=== PATIENT | female | born 1990 | race Caucasian/White ===

== ENCOUNTER 2017-09-07 12:03 | Outpatient (CLI) | payer BC, OTHER ==
[~2017-09-07] VITALS: Ht 167.6 cm; Wt 92.5 kg
[~2017-09-07 12:03] MED LIST: ALBUAER19 INH; BCPILLS PO; BND25 PO; BSP/10 PO; LAMO200T35 PO; LURA80TA PO; MOME100A INH
[2017-09-07] MEDS ORDERED: ABL10 PO (13:57)
[2017-09-07] MEDS ORDERED: PRENTAB26 PO (13:57)
[2017-09-07] MEDS ORDERED: LAMO100T16 PO (13:59)
[2017-09-07 14:01] VITALS: Ht 167.6 cm; Wt 92.5 kg
--- NOTE | 2017-09-12 11:37 | EDITING REQUIRED CODING QUERY ---
DIAGNOSIS NEEDED To promote full compliance with coding requirements relating to patient care, physician participation is requested in all cases of corrugator uncertainty. Please assist us with the question(s) below: Coding Question: The patient received care in labor and delivery on 09/07/17 as noted within the record. Please document the diagnosis that is being addressed by the medication/treatment. Provider Response: DIAGNOSIS: rule out labor WEEKS OF GESTATION: 38 Thank you for your assistance, Chary Rivas - Mixing Operator
== END 2017-09-07 14:10 | disposition home or self-care (01) ==
LOC: C.OPB 12:03 → C.LD 12:04 → C.OPB 14:10
PROVIDERS: ATTEND Obstetrics & Gynecology
DX: Z34.03 Encounter for supervision of normal first pregnancy, third trimester (principal); Z3A.38 38 weeks gestation of pregnancy

== ENCOUNTER 2017-10-03 19:49 | Inpatient (IN) | payer BC ==
[~2017-10-03] VITALS: Ht 167.6 cm; Wt 101.0 kg
[~2017-10-03 19:49] MED LIST changes: +ABL10 PO; -BCPILLS PO; +LAMO100T16 PO; -LAMO200T35 PO; -LURA80TA PO; -MOME100A INH
[2017-10-03 21:23] VITALS: Ht 167.6 cm; Wt 101.0 kg
[2017-10-03] MEDS ORDERED: [UNRECOGNIZED DRUG - CODE] (22:57)
[2017-10-04] MEDS ORDERED: LACTATED RINGER'S 1000ML 1,000 ML IV SCH (00:02)
[2017-10-04] MEDS ORDERED: LACTATED RINGER'S 1000ML 1,000 ML IV PRN (00:02)
[2017-10-04] MEDS ORDERED: INFLUENZA VIRUS QUAD VACCINE 0.5 ML SYR IM. ONE (00:15)
[2017-10-04] MEDS ORDERED: INFLUENZA ADMINISTRATION CHARGE ONE (00:15)
[2017-10-04] MEDS ORDERED: CALCIUM CARBONATE 500 MG CHEWABLE ONE (00:22)
--- NOTE | 2017-10-04 00:22 | Progress Note ---
Progress Note Date of Service Oct 04, 2017. Progress Note Admit Note 27 F P0000 at 40 weeks admitted in early labor at 40 weeeks. cervix 4/90/-1/ vertex. Contractions every 2-3 minutes. FHT Cat 1. GBS is negative. Will admit in labor.
[2017-10-04 00:42] LABS: HEMATOCRIT 35.2 % (37-47); HEMOGLOBIN 12.2 g/dL (12.0-16.0); MEAN CELL VOLUME 91.4 fL (80-100); MEAN CORPUSCULAR HEMOGLOBIN 31.7 pg (25-34); MEAN CORPUSCULAR HGB CONC 34.7 g/dl (32-36); PLATELET COUNT 206 K/uL (130-400); RED CELL DISTRIBUTION WIDTH SD 45.9 fL (36.4-46.3); WHITE BLOOD COUNT 11.59 K/uL (4.8-10.8)
[2017-10-04] MEDS ORDERED: ONDANSETRON INJ 2 MG/ML 2 ML VIAL ONE (04:31)
[2017-10-04] MEDS ORDERED: ONDANSETRON INJ 2 MG/ML 2 ML VIAL IV PRN (04:45)
[2017-10-04] MEDS: CALCIUM CARBONATE 500 MG CHEWABLE PO PRN ×2 (06:13→18:47)
[2017-10-04] MEDS ORDERED: OXYTOCIN 30 UNITS/500ML NSS IV ONE (15:52)
[2017-10-04] MEDS ORDERED: METHYLERGONOVINE MALEATE 0.2 MG/ML AMP ONE (16:31)
[2017-10-04] MEDS ORDERED: HYDROCORTISONE ACETATE 25 MG SUPP PR PRN (17:15)
[2017-10-04] MEDS ORDERED: OXYTOCIN 30 UNITS/500ML NSS IV PRN (17:15)
[2017-10-04] MEDS ORDERED: LANOLIN OINT EXT PRN (17:15)
[2017-10-04] MEDS ORDERED: OXYCODONE/ACETAMINOPHEN 5-325 TAB PO PRN (17:15)
[2017-10-04] MEDS ORDERED: SUPERCREAM 0.870 % 15GM JAR EXT PRN (17:15)
[2017-10-04] MEDS ORDERED: ACETAMINOPHEN 325 MG TAB PO PRN (17:15)
[2017-10-04] MEDS ORDERED: ALBUTEROL HFA 8 GM INHALER INH PRN (17:15)
[2017-10-04] MEDS ORDERED: BENZOCAINE 20% AER SPR 82.5 GM CAN EXT PRN (17:15)
[2017-10-04] MEDS ORDERED: DIPHTHERIA/TETANUS/PERTUSSIS 0.5 ML SYR/VIAL IM. ONE (17:15)
[2017-10-04] MEDS ORDERED: METHYLERGONOVINE MALEATE 0.2 MG/ML AMP IM ONE (17:15)
[2017-10-04] MEDS: IBUPROFEN 600 MG TAB PO PRN (18:47)
[2017-10-04 20:00] VITALS: BP 128/87; PULSE 87; TEMP 36.8
--- NOTE | 2017-10-04 20:59 | DELIVERY SUMMARY ---
DATE OF OPERATION: 10/04/2017 TIME OF DELIVERY: 1623. DELIVERY OF PLACENTA: 1627. DELIVERY NOTE: The patient is a 27-year-old 1, para 0 at 41 weeks and 1 day gestation who was admitted to labor and delivery on the evening of 10/03/2017 in active labor. She was francesca spontaneously on her own. She requested to not have an epidural for anesthesia. Artificial rupture of membranes was performed at 7:43 a.m. on 10/04/2017 with particular meconium-stained amniotic fluid noted. She reached complete dilatation at 1449 and she pushed to deliver at 1623. She delivered a viable male infant in the right occiput anterior position to an intact perineum. The baby was delivered and then placed on the patient's abdomen. Cord was clamped x2 and cut. Apgars were 8 at one minute and 9 at five minutes. Please see nursing notes for further baby assessment. Cord blood was then obtained and placenta was then delivered manually at 1627. The cord ruptured therefore the placenta had to be removed manually. Once the placenta was removed, Oxytocin infusion was then began. The uterus was noted to be atonic. Therefore she was given Methergine 0.2 mg IM along with fundal massage. Excellent hemostasis was achieved. Thorough examination of the perineum noted a second degree perineal laceration which was injected with lidocaine for anesthesia and was repaired with 2-0 and 3-0 Vicryl sutures in layers. Excellent hemostasis was noted. Digital rectal exam was completed and noted good sphincter tone with no suture noted within the rectal mucosa. Once the perineal laceration was completely repaired and hemostatic, attention was directed towards the right periurethral laceration which was also injected with lidocaine and was repaired with 3-0 Vicryl suture in continuous running fashion. Excellent hemostasis was noted. Estimated blood loss was 400 mL. All sponge, instrument and needle counts were found to be correct x2. Both patient and baby tolerated the surgery well and was sent to recovery with stable vital signs. I attest to the content of the Intraoperative Record and any orders documented therein. Any exceptions are noted below. MTDD
[2017-10-04] MEDS: BusPIRone 15 MG TAB PO SCH (23:29)
[2017-10-04] MEDS: DOCUSATE SODIUM 100 MG CAP PO SCH (23:29)
[2017-10-04 23:45] VITALS: BP 123/72; PULSE 85; TEMP 36.4
[2017-10-05 03:45] VITALS: BP 119/80; PULSE 78; TEMP 36.4
[2017-10-05] MEDS: IBUPROFEN 600 MG TAB PO PRN ×5 (03:52→21:29)
[2017-10-05 06:48] LABS: HEMATOCRIT 26.9 % (37-47)
[2017-10-05 07:37] VITALS: BP 116/76; PULSE 79; TEMP 36.6
[2017-10-05] MEDS ORDERED: FERROUS SULFATE 325 MG TAB PO SCH (08:00)
[2017-10-05] MEDS: BusPIRone 15 MG TAB PO SCH ×3 (08:04→19:22)
[2017-10-05] MEDS: ARIPIprazole TAB 10 MG TAB PO SCH (08:05)
--- NOTE | 2017-10-05 09:05 | OB/GYN Progress Note ---
[employer]ER [employer] Progress Note Date of Service: Oct 05, 2017. Patient is seen and examined. She feels well, no complaints. Ambulating without dizziness Voiding without difficulty Tolerating regular diet with out N&V Bleeding is minimal No fever/ chills/ CP/ SOB/ N&V/ Leg pain Bottle feeding without problems Date Time Temp Pulse Resp B/P (MAP) Pulse Ox O2 Delivery O2 Flow Rate FiO2 10/05/17 07:52 Room Air 10/05/17 07:37 36.6 79 20 116/76 (89) 10/05/17 03:45 36.4 78 18 119/80 (93) Room Air 10/04/17 23:45 36.4 85 18 123/72 (89) Room Air 10/04/17 23:45 Room Air 10/04/17 20:00 Room Air 10/04/17 20:00 36.8 87 18 128/87 (101) Room Air Last 24 Hours Test 10/05/17 05:58 Hemoglobin 9.0 g/dL Hematocrit 26.9 % PE: General: Alert, orientedx3, NAD Abd: soft, NT, fundus firm, at the Umbilicus Perineum intact, Lochia rubra minimal Ext; NT, no edema AP: 27 yo s/p , ppd# 1 VSS Afebrile doing well Continue routine care All questions were answered
[2017-10-05] MEDS: PRENATAL VITAMIN TAB PO SCH (09:38)
[2017-10-05] MEDS: DOCUSATE SODIUM 100 MG CAP PO SCH ×2 (09:38→19:22)
[2017-10-05] MEDS: FERROUS SULFATE 325 MG TAB PO SCH ×2 (09:38→19:21)
[2017-10-05 11:20] VITALS: BP 139/83; PULSE 97; TEMP 36.6; O2SAT 97
[2017-10-05] MEDS: NICOTINE POLACRILEX 2 MG GUM MT PRN ×4 (12:29→21:36)
[2017-10-05 15:20] VITALS: BP 121/75; PULSE 86; TEMP 36.4; O2SAT 98
[2017-10-05] MEDS ORDERED: BISACODYL 5 MG TABEC PO SCH (20:00)
[2017-10-06 00:15] VITALS: BP 126/82; PULSE 86; TEMP 36.7
[2017-10-06] MEDS: NICOTINE POLACRILEX 2 MG GUM MT PRN ×5 (00:22→13:21)
[2017-10-06] MEDS: IBUPROFEN 600 MG TAB PO PRN ×2 (01:21→05:43)
[2017-10-06 06:39] LABS: HEMATOCRIT 21.8 % (37-47); HEMOGLOBIN 7.2 g/dL (12.0-16.0); MEAN CELL VOLUME 93.6 fL (80-100); MEAN CORPUSCULAR HEMOGLOBIN 30.9 pg (25-34); MEAN PLATELET VOLUME 9.3 fL (7.4-10.4); PLATELET COUNT 160 K/uL (130-400); RED CELL DISTRIBUTION WIDTH CV 14.6 % (11.5-14.5); RED CELL DISTRIBUTION WIDTH SD 49.6 fL (36.4-46.3); WHITE BLOOD COUNT 11.26 K/uL (4.8-10.8)
[2017-10-06] MEDS ORDERED: BISACODYL 10 MG SUPP PR PRN (07:00)
[2017-10-06 08:30] VITALS: BP 121/76; PULSE 76; TEMP 36.4
[2017-10-06] MEDS: ARIPIprazole TAB 10 MG TAB PO SCH (08:32)
[2017-10-06] MEDS: BusPIRone 15 MG TAB PO SCH (08:32)
[2017-10-06] MEDS: FERROUS SULFATE 325 MG TAB PO SCH (09:20)
[2017-10-06] MEDS: PRENATAL VITAMIN TAB PO SCH (09:20)
[2017-10-06] MEDS: DOCUSATE SODIUM 100 MG CAP PO SCH (09:20)
--- NOTE | 2017-10-06 11:34 | OB/GYN Progress Note ---
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 Patient is seen and examined. She feels well, no complaints. Ambulating without dizziness Voiding without difficulty Tolerating regular diet with out N&V Bleeding is minimal No fever/ chills/ CP/ SOB/ N&V/ Leg pain Bottle feeding without problems Date Time Temp Pulse Resp B/P (MAP) Pulse Ox O2 Delivery O2 Flow Rate FiO2 10/06/17 08:30 36.4 76 18 121/76 (91) Room Air 10/06/17 08:00 Room Air 10/06/17 00:15 36.7 86 18 126/82 (97) Room Air 10/06/17 00:15 Room Air 10/05/17 15:20 98 Room Air 10/05/17 15:20 36.4 86 18 121/75 (90) 98 Room Air Last 24 Hours Test 10/06/17 06:12 White Blood Count 11.26 K/uL Red Blood Count 2.33 M/uL Hemoglobin 7.2 g/dL Hematocrit 21.8 % Mean Corpuscular Volume 93.6 fL Mean Corpuscular Hemoglobin 30.9 pg Mean Corpuscular Hemoglobin Concent 33.0 g/dl RDW Standard Deviation 49.6 fL RDW Coefficient of Variation 14.6 % Platelet Count 160 K/uL Mean Platelet Volume 9.3 fL PE: General: Alert, orientedx3, NAD Abd: soft, NT, fundus firm, at the Umbilicus Perineum intact, Lochia rubra minimal Ext; NT, no edema AP: 27 yo s/p , ppd# 2 VSS Afebrile doing well Anemic, asymptomatic, on iron bid Discussed blood transfusion vs oral iron therapy and iron rich food She likes to have level repeated before d/c Continue routine care All questions were answered D/C home per H&H
[2017-10-06] MEDS ORDERED: FRRS300 PO (11:35)
--- NOTE | 2017-10-06 11:36 | Discharge Instructions ---
Discharge Instructions Date of Service Oct 06, 2017. Admission Reason for Admission: LABOR Discharge Discharge Diagnosis / Problem: Discharge Goals Goal(s): Routine recovery after delivery Activity Recommendations Activity Limitations: as noted below ACTIVITY RECOMMENDATIONS: * Gradual return to full activity over the next 2-3 weeks. * No lifting - nothing heavier than baby over the next 2-3 weeks. * Do not engage in vigorous exercise, sexual activity or sports until cleared by your physician. * Do not drive or operate any motorized equipment until cleared by your physician. * You may shower/bathe daily. BREAST CARE: If you are not breast feeding: * Wear a supportive bra 24 hours a day for one to two weeks. * Avoid stimulating your breasts and nipples as much as possible during the first few weeks after delivery. * When taking a shower, have the warm water hit your back, not breasts. * When your breasts feel full, apply ice packs. Usually three to four times a day helps ease the discomfort. * Take a mild pain medication (Tylenol/Motrin) when you are uncomfortable. If breast feeding: * Use breast milk to lubricate nipples. Lansinoh cream may be used for sore nipples. You do not need to remove cream prior to breast feeding. If using a different brand of cream, check the label for directions regarding removal of cream prior to nursing. * Wear a supportive bra. * If having problems with breasts or breast feeding, call a inbound sales consultant or your health care provider. EPISIOTOMY CARE: After delivery, if you have an episiotomy (stitches), the following steps will ease discomfort and aid healing. * For the first 24 hours after delivery, place ice packs next to your episiotomy to help reduce swelling. * After the first 24 hour-period, sitz baths, either portable or in the tub, are suggested. A shower with a shower arm sprayed over the episiotomy may be comforting. * Jacqueline care should be done after each voiding and bowel movement. Squirt warm water from a plastic bottle over the perineum (region of the body between the anus and urinary opening) and pat dry. * Use Dermoplast to ease discomfort. Shake container. [place] directly over the episiotomy. * Place a Tucks on a clean sanitary pad next to your episiotomy. OVER THE COUNTER MEDICATION: * For discomfort or pain, you may use Acetaminophen (Tylenol), Ibuprofen (Advil ), or Naproxen (Aleve) following the package directions. * For constipation you may use Colace following the package directions. SPECIAL CARE INSTRUCTIONS: When you are discharged from the hospital, it is important for you to follow the instructions listed below: * During the first week at home, you should be able to care for yourself and your baby. In addition, the usual light household activities are encouraged. * Limit your activities to the way you feel. Do not try to clean the house or move furniture. Be sensible. * If you actively engage in sports and have done so up until the time of your delivery, you may resume these activities as soon as you feel able. This may take up to one month or even longer. Use good judgment. * Continue to take your vitamins for at least six weeks after the of your baby. * Your diet need not be limited unless you were on a special diet before your delivery. Breast-feeding mothers need around 2500 calories per day and at least 64-80 ounces of fluid per day (8 to 10 glasses). * You should eat foods from the four major food groups. Crash diets or fad diets are to be avoided. Eating lean meats, fresh fruits and vegetables, low-fat dairy products, high fiber foods and a regular exercise program, will help you get back to your pre- weight without putting your health at risk. * Constipation is sometimes a problem after delivery. Take a mild laxative as needed. If breast feeding, Milk of Magnesia is acceptable to use. You may use a suppository or Fleets enema if no episiotomy. * A daily shower or tub bath is suggested. Be sure to thoroughly and gently dry the perineum. * A bloody vaginal discharge will usually continue until around four weeks post . A small amount of bleeding may continue for as long as six weeks. Vaginal discharge changes from the bright red bleeding after delivery to pink then brownish and finally yellowish-pink before becoming white and disappearing. * Bleeding may increase with activity. Your first period may come in 4-8 weeks. If you are breast feeding, your period may be delayed even longer. * [place] (sex) can begin whenever both you and your partner feel comfortable and do not have any form of genital infection. It is recommended that you wait until after your return appointment and discuss with your physician. If you have questions, please talk to your health care practitioner. A condom should be used to prevent infection and . * Foreplay, gentle intercourse and lubrication is very important the first several times to prevent pain. A water-based lubricant such as K-Y jelly or Astroglide may be used. * Tampons may be used six weeks after delivery. * Douching should be avoided for 6 weeks after delivery. * If you have RH negative blood and your baby is RH positive, you will receive RHOGAM by injection prior to discharge. The nurse will give you a card to keep with you that has the date and place that you received RHOGAM after delivery. * During your care, you had a Rubella screen done to check for the presence of rubella antibodies in your blood. If your test was negative, you will receive a Rubella vaccine prior to discharge. This vaccine may cause a fever, soreness at the injection site and flu-like symptoms. If these symptoms persist, notify your health care practitioner. is not advised for three months after a Rubella vaccine. There is a higher chance of having a baby with defects if conceived within three months of getting the vaccine. * If you were discharged 24 hours from delivery or before 48 hours: Visiting nurses will come to your home 48 hours after discharge to assess you and your baby. The visiting nurse will meet with you while you are in the hospital to arrange a time and get directions to your home. * Verbalizes understanding of car seat law as reviewed with patient nursing. * Car Seat hand-out given and reviewed with patient by nursing. * Shaken baby information reviewed with patient by nursing. Call you doctor if: * Heavy bleeding (saturating several pads an hour) or passing clots the size of your fist. * A fever >101 degrees F (38.3 degrees C) on two occasions four hours apart and/or chills. * Unusual pain in the pelvic or vaginal areas. * "Baby Blues" lasting longer than two weeks. If you have any questions or concerns, call your health care practitioner at . FOLLOW-UP VISIT: * Please call the office at to schedule a 6 week examination. It is important you keep this appointment. * It is important for you to make arrangements for either yearly or twice yearly check-ups thereafter. . Current Hospital Diet Patient's current hospital diet: Regular OB Diet Discharge Diet Recommended Diet: Regular Diet Pending Studies Studies pending at discharge: no Medical Emergencies . Who to Call and When: Medical Emergencies: If at any time you feel your situation is an emergency, please call 911 immediately. . Non-Emergent Contact Non-Emergency issues call your: Specialist Call Non-Emergent contact if: you have a fever, temperature is above 100.5, your pain is not controlled, your pain is worsening . . "Provider Documentation" section prepared by Viral Underwood. .
[2017-10-06 12:15] LABS: HEMATOCRIT 21.4 % (37-47); HEMOGLOBIN 7.2 g/dL (12.0-16.0)
--- NOTE | 2017-10-06 12:39 | OB/GYN Progress Note ---
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 Discussed the results Hb stable at 7.2 She likes to be discharged with oral iron Instructions were when to call Rx written
[2017-10-06 13:59] VITALS: BP_DIAS 76; PULSE 76; TEMP 36.4
[2017-10-08] MEDS ORDERED: PRENTAB26 PO (13:57)
== END 2017-10-06 13:55 | disposition home or self-care (01) | DRG 775 ==
LOC: C.OPB 19:49 → C.LD 19:49 → C.OPB 10-04 00:05 → C.OBG 10-04 20:04
PROVIDERS: ADMIT Obstetrics & Gynecology; ATTEND Obstetrics & Gynecology
PROC: 0KQM0ZZ Repair Perineum Muscle, Open Approach (ICD-10-PCS; principal; 2017-10-04)
PROC: 10E0XZZ Delivery of Products of Conception, External Approach (ICD-10-PCS; principal; 2017-10-04)
DX: O77.0 Labor and delivery complicated by meconium in amniotic fluid (principal); O99.344 Other mental disorders complicating childbirth; O75.89 Other specified complications of labor and delivery; O70.1 Second degree perineal laceration during delivery; Z3A.41 41 weeks gestation of pregnancy; Z37.0 Single live birth; F31.9 Bipolar disorder, unspecified; Z79.899 Other long term (current) drug therapy

== ENCOUNTER 2017-10-08 14:41 | Emergency (ER) | payer BC ==
[~2017-10-08] VITALS: Ht 167.6 cm; Wt 90.7 kg
[~2017-10-08 14:41] MED LIST changes: -BND25 PO; +FRRS300 PO; +PRENTAB26 PO; +[UNRECOGNIZED DRUG - CODE]
[2017-10-08 14:47] VITALS: TEMP 36.8; Ht 167.6 cm; Wt 90.7 kg
[2017-10-08] MEDS ORDERED: SODIUM CHLORIDE 0.9% 1000ML 1,000 ML IV ONE (16:01)
[2017-10-08] MEDS ORDERED: SODIUM CHLORIDE 0.9% 1000ML 1,000 ML IV STA (16:01)
--- NOTE | 2017-10-08 16:18 | DIAGNOSTIC IMAGING REPORT ---
CHEST ONE VIEW PORTABLE CLINICAL HISTORY: CHEST PAIN dyspnea COMPARISON STUDY: 05/30/2012 FINDINGS: The bones soft tissues and hemidiaphragms are normal. The cardiomediastinal silhouette is normal. The lungs are clear. The pulmonary vasculature is normal. IMPRESSION: Negative chest. The above report was generated using voice recognition software. It may contain grammatical, syntax or spelling errors. Electronically signed by: Calvin Jaimes M.D. 10/08/2017 4:16 PM Dictated Date/Time: 10/08/2017 4:16 PM
--- NOTE | 2017-10-08 16:24 | EMERGENCY ROOM VISIT NOTE ---
History Report prepared by Jovanni: Margo Yuan Under the Supervision of: Dr. Ariel Hastings M.D. First contact with patient: 15:50 Chief Complaint: DIZZY Stated Complaint: DIZZINESS AND ANEMIA, REFERRED BY MD Nursing Triage Summary: Patient ambulatory to triage with an upright and steady gait, states "My doctor referred me here for a blood transfusion. I had a baby on Saturday and have been anemic since then. I am morre symptomatic now. I have a headache and am lightheaded, dizzy, and pale. I have some shortness of breath with exertion." History of Present Illness The patient is a 27 year old female who presents to the Emergency Room with complaints of worsening dizziness starting 4 days ago. The patient had baby 4 days ago. The baby was vaginally delivered and was 10 lbs. She did not have an epidural. She has been anemic since then with a hemoglobin of 7.1. The patient was discharged home 2 days ago. She has been increasingly symptomatic with her anemia. She reports dizziness, chills, headache, and SOB with exertion. She has been taking iron supplements to no relief. She was seen by her Wig Sales Consultant today and referred to the ED for a transfusion. She reports that she is not bleeding excessively. She did pass some clots today, but she was not concerned. Her abdomen has felt sore. She denies any fever, chest pain, or urinary symptoms. She has been having swelling in her legs for 1 month now. She denies any history of preeclampsia. She is bottle feeding. She has a history of bipolar, asthma, GERD, and anxiety. She is not on lithium. Source of History: patient Onset: 4 days ago Quality: other (dizziness) Timing: worsening Modifying Factors (Worsening): other (anemia) Associated Symptoms: + chills, + headache, + SOB, No fevers, No chest pain, No urinary symptoms Review of Systems See HPI for pertinent positives & negatives. A total of 10 systems reviewed and were otherwise negative. Past Medical & Surgical Medical Problems: (1) ASTHMA, UNSPECIFIED (2) BIPOL I, MOST RECENT EPISODE (OR CURRENT) UNSPECIFIED (3) FAM HX-OTH KIDNEY DISEASES (4) FAMILY HISTORY OF OTHER CARDIOVASCULAR DISEASES (5) FAMILY HX-MALIGNANCY NOS (6) HISTORY OF TOBACCO USE (7) History of tonsillectomy (8) MIGRAINE UNSPECIFIED W/O INTRACT MGRN W/O STATUS MIGRAINOSUS (9) PYELONEPHRITIS NOS Old medical records were reviewed. Nurse's notes were reviewed and I agree with. Family History FH: lung disease Kidney disease Kidney stones Social History Smoking Status: Former Smoker Alcohol Use: none Drug Use: none Housing Status: lives with family Occupation Status: employed Current/Historical Medications Scheduled Aripiprazole (Aripiprazole), 20 MG PO DAILY Ferrous Sulfate (Ferrous Sulfate), 325 MG PO TID Lamotrigine (Lamotrigine), 100 MG PO BID Multivit/Min/Iron/Fol Ac/Pren ( Vitamin), 1 TAB PO DAILY Scheduled PRN Albuterol Sulfate (Proair Respiclick), 2 PUFFS INH QID PRN for SOB/Wheezing Buspirone HCl (Buspirone HCl), 7.5 MG PO TID PRN for Anxiety Allergies Coded Allergies: Latex (Verified Allergy, Intermediate, Swelling of extremities and face., 10/08/17) PT was instructed by PCP to treat latex as an allergy. Physical Exam Vital Signs Date Time Temp Pulse Resp B/P (MAP) Pulse Ox O2 Delivery O2 Flow Rate FiO2 10/08/17 20:00 66 16 134/94 100 10/08/17 18:55 77 16 138/83 99 Room Air 10/08/17 17:39 104 22 141/90 98 Room Air 10/08/17 17:34 75 22 145/94 99 Room Air 76 137/96 100 141/90 10/08/17 16:46 73 20 100 Room Air 10/08/17 16:35 68 10/08/17 14:47 36.8 79 20 135/91 100 Room Air Physical Exam General: Mildly pale appearing young female in no acute distress. HEENT: Normal cephalic atraumatic. Pupils are equal round and reactive to light. Extraocular movements are intact. Oropharynx is pink with moist mucous membranes. No swelling of the mouth lips or tongue. Neck: Supple with a midline trachea. No meningeal signs or stiffness, no JVD or bruits. No Stridor. Chest: Clear to auscultation bilaterally. No wheezes or rhonchi. No increased work of breathing. Heart: regular rate and rhythm. Abdomen: Gravid uterus felt around the umbilicus, firm, mildly tender. Extremities: Peripheral edema bilaterally which she says is chronic. Spine/Back. Non tender to palpation. No CVA tenderness Skin: Good turgor without rashes. Neurologic exam: Cranial nerves two through 12 are intact. Motor and sensation are intact and symmetrical throughout. Medical Decision & Procedures ER Provider Diagnostic Interpretation: X-ray results as stated below per interpretation by me and the radiologist: CHEST ONE VIEW PORTABLE CLINICAL HISTORY: CHEST PAIN dyspnea COMPARISON STUDY: 05/30/2012 FINDINGS: The bones soft tissues and hemidiaphragms are normal. The cardiomediastinal silhouette is normal. The lungs are clear. The pulmonary vasculature is normal. IMPRESSION: Negative chest. The above report was generated using voice recognition software. It may contain grammatical, syntax or spelling errors. Electronically signed by: Calvin Jaimes M.D. 10/08/2017 4:16 PM Dictated Date/Time: 10/08/2017 4:16 PM Laboratory Results 10/08/17 16:06 Red Blood Count 2.85, Mean Corpuscular Volume 94.7, Mean Corpuscular Hemoglobin 31.6, Mean Corpuscular Hemoglobin Concent 33.3, Mean Platelet Volume 8.6, Neutrophils (%) (Auto) 71.9, Lymphocytes (%) (Auto) 18.7, Monocytes (%) (Auto) 5.8, Eosinophils (%) (Auto) 2.1, Basophils (%) (Auto) 0.2, Neutrophils # (Auto) 6.72, Lymphocytes # (Auto) 1.75, Monocytes # (Auto) 0.54, Eosinophils # (Auto) 0.20, Basophils # (Auto) 0.02 10/08/17 16:06 Test 10/08/17 16:06 White Blood Count 9.35 K/uL (4.8-10.8) Red Blood Count 2.85 M/uL (4.2-5.4) Hemoglobin 9.0 g/dL (12.0-16.0) Hematocrit 27.0 % (37-47) Mean Corpuscular Volume 94.7 fL (80-100) Mean Corpuscular Hemoglobin 31.6 pg (25-34) Mean Corpuscular Hemoglobin Concent 33.3 g/dl (32-36) Platelet Count 288 K/uL (130-400) Mean Platelet Volume 8.6 fL (7.4-10.4) Neutrophils (%) (Auto) 71.9 % Lymphocytes (%) (Auto) 18.7 % Monocytes (%) (Auto) 5.8 % Eosinophils (%) (Auto) 2.1 % Basophils (%) (Auto) 0.2 % Neutrophils # (Auto) 6.72 K/uL (1.4-6.5) Lymphocytes # (Auto) 1.75 K/uL (1.2-3.4) Monocytes # (Auto) 0.54 K/uL (0.11-0.59) Eosinophils # (Auto) 0.20 K/uL (0-0.5) Basophils # (Auto) 0.02 K/uL (0-0.2) RDW Standard Deviation 49.9 fL (36.4-46.3) RDW Coefficient of Variation 14.6 % (11.5-14.5) Immature Granulocyte % (Auto) 1.3 % Immature Granulocyte # (Auto) 0.12 K/uL (0.00-0.02) Anion Gap 7.0 mmol/L (3-11) Est Creatinine Clear Calc Drug Dose 143.9 ml/min Estimated GFR () 139.3 Estimated GFR (Non- 120.2 BUN/Creatinine Ratio 10.4 (10-20) Calcium Level 8.5 mg/dl (8.5-10.1) Total Bilirubin 0.2 mg/dl (0.2-1) Direct Bilirubin < 0.1 mg/dl (0-0.2) Aspartate Amino Transf (AST/SGOT) 66 U/L (15-37) Alanine Aminotransferase (ALT/SGPT) 90 U/L (12-78) Alkaline Phosphatase 142 U/L (45-117) Total Protein 6.3 gm/dl (6.4-8.2) Albumin 2.3 gm/dl (3.4-5.0) Lipase 91 U/L (73-393) Laboratory studies as stated above per my review. Medications Administered Medications (Trade) Dose Ordered Sig/Balwinder Route Start Time Stop Time Status Last Admin Dose Admin Sodium Chloride 1,000 ml @ 999 mls/hr Q1H1M STAT IV 10/08/17 16:01 10/08/17 17:01 DC 10/08/17 16:01 999 MLS/HR ECG Per My Interpretation Indication: other (dizziness) Rate (beats per minute): 75 Rhythm: normal sinus Findings: no acute ischemic change, no ectopy Comparison ECG Date: 24-Aug-2015 Change: no significant change ED Course 155: Past medical records reviewed. The patient was evaluated in room C6, and a complete history and physical examination were performed. 1601: NSS 1000 ml @ 999 mls/hr IV. 1650: I reevaluated the patient. She appears comfortable and is up to going home. 172: I reevaluated the patient. She is resting comfortably. We are waiting for OB to call back. 1841: I discussed the patient's case with Laura Salter Wig Sales Consultant. She will come to evaluate the patient. 1951: Wig Sales Consultant has evaluated the patient and feels that she can go home. She was offered blood transfusion, but she declined. She notes that she is mostly dizzy with running around the house and thinks she might just be overexerting herself. The patient's uterus is still enlarged, but exam is unchanged from when she was discharged. 1953: Upon reevaluation, the patient is resting comfortably. I discussed the results and treatment plan with her. She verbalized agreement of the treatment plan. The patient was discharged home. Medical Decision Differentials include, but are not limited to; anemia, infection, dehydration, cardiac disease, electrolyte or metabolic abnormality. This patient comes in as described above. She was placed in room C6. she has symptoms of anemia likely she is she has had minimal vaginal bleeding. Her abdomen has some mild tenderness but the uterus appears firm. she is afebrile. She was seen by her director of assessing and sent to the ER for possible transfusion according to the patient. She does have swollen legs but says that she has been negative for preeclampsia otherwise. IV access established was type and cross for blood multiple blood testing was obtained as well as EKG and chest x-ray. She was hydrated with IV normal saline was reassessed frequently. She feels much better. Her blood pressures remained stable. I checked orthostatics and her pulse does go up but her blood pressure stays the same. Her hemoglobin is actually up at 9. She has no white count. She has a normal neurologic exam and she has nothing to suggest acute neurologic process. I do not think she is likely eclamptic/preeclamptic. She has had chronic swelling of her legs during this that is unchanged. She has nothing to suggest cardiac disease. I did have the director of assessing evaluate her in the ER. She feels she can go home as well. She feels her abdominal exam is unchanged as is her legs. She did offer to transfuse the patient but the patient declined. The patient has been overdoing it at home and needs to rest a little bit. She will be anemic for a few days until sure starts to recover from this. Again, she declines transfusion and wants to go home. I think this is reasonable she should rest and drink plenty of fluids and she is to follow-up to get her lab work rechecked on at her director of assessing office. She is return to the ER if: Worsening of symptoms, fever or chills, chest pain, shortness of breath, any new problems or concerns. She is happy with plan and discharged to home. Medication Reconcilliation Current Medication List: was personally reviewed by me Blood Pressure Screening Patient's blood pressure: Elevated blood pressure Blood pressure disposition: Elevated BP felt to be situational Consults Time Called: 1656 Consulting Physician: Laura Salter Wig Sales Consultant Returned Call: 1841 I discussed the patient's case with her. She will come to evaluate the patient. Impression Primary Impression: Dizziness Additional Impression: Anemia, Scribe Attestation The scribe's documentation has been prepared under my direction and personally reviewed by me in its entirety. I confirm that the note above accurately reflects all work, treatment, procedures, and medical decision making performed by me. Departure Information Dispostion Home / Self-Care Referrals No Doctor, Assigned (PCP) Forms HOME CARE DOCUMENTATION FORM, IMPORTANT VISIT INFORMATION Patient Instructions My [facility] [employer] Additional Instructions Rest Drink plenty of fluids Be careful when getting up and down. Follow-up with OXYGEN THERAPIST on for recheck on your blood work Return to the ER in the meantime if you have worsening symptoms, fever, chest pain, increasing bleeding, shortness of breath, any new problems or concerns. Problem Qualifiers
[2017-10-08] MEDS ORDERED: ARIP1TAB17 PO (16:27)
[2017-10-08] MEDS ORDERED: LAMO1TAB21 PO (16:27)
[2017-10-08] MEDS ORDERED: ALBU18002 INH (16:27)
[2017-10-08] MEDS ORDERED: BSP15 PO (16:27)
[2017-10-08] MEDS ORDERED: FERR325T5 PO (16:29)
[2017-10-08 16:37] LABS: ALBUMIN 2.3 gm/dl (3.4-5.0); ALT/SGPT 90 U/L (12-78); BLOOD UREA NITROGEN 7 mg/dl (7-18); CALCIUM 8.5 mg/dl (8.5-10.1); CARBON DIOXIDE 26 mmol/L (21-32); CREATININE 0.66 mg/dl (0.60-1.20); GLUCOSE 86 mg/dl (70-99); LIPASE 91 U/L (73-393); POTASSIUM 3.8 mmol/L (3.5-5.1); SODIUM 138 mmol/L (136-145)
[2017-10-08 16:40] LABS: ALKALINE PHOSPHATASE 142 U/L (45-117); AST/SGOT 66 U/L (15-37); TOTAL PROTEIN 6.3 gm/dl (6.4-8.2)
[2017-10-08 16:42] LABS: BASO % 0.2 %; BASO ABS # 0.02 K/uL (0-0.2); EOS % 2.1 %; IG# 0.12 K/uL (0.00-0.02); LYMPH % 18.7 %; LYMPH ABS # 1.75 K/uL (1.2-3.4); MEAN CELL VOLUME 94.7 fL (80-100); MEAN CORPUSCULAR HEMOGLOBIN 31.6 pg (25-34); MEAN CORPUSCULAR HGB CONC 33.3 g/dl (32-36); MEAN PLATELET VOLUME 8.6 fL (7.4-10.4); MONO % 5.8 %; MONO ABS # 0.54 K/uL (0.11-0.59); NEUT % 71.9 %; NEUT ABS # 6.72 K/uL (1.4-6.5); PLATELET COUNT 288 K/uL (130-400); RED CELL DISTRIBUTION WIDTH CV 14.6 % (11.5-14.5); RED CELL DISTRIBUTION WIDTH SD 49.9 fL (36.4-46.3); WHITE BLOOD COUNT 9.35 K/uL (4.8-10.8)
[2017-10-08 20:00] VITALS: BP 134/94; PULSE 66; O2SAT 100
--- NOTE | 2017-10-08 20:30 | Medical Consult ---
Consultation Date of Consultation: Oct 08, 2017. Attending Physician: Reason for Consultation: Sent from office for blood transfusion History of Present Illness Patient is a 27 yo s/p on 10/04/17, delivered 10 lb 1 oz baby boy She was discharged on 10/06 Her HB was 7.1 ( 2 times) and she was asymptomatic Discussion was made about blood transfusion with its benefits and risks vs oral iron therapy She was asymptomatic, VSS and wanted to be discharged home She was recommended to take iron bid with ornage juice and PNV with iron at another time of the day She went home and started be asymptomatic She states she has been very actvie at home, running up and down stairs and feels light headed dizzy after climbing stairs She feels better when she sits and rests She is bottle feeding Baby is well Her is helping her Her bleeding was heavier this morning, passed cloth one time and then slowed down Her legs have been swollen since her She was in office this afternoon and her repeat HB was was 8.2, Hct: 25.9 It was repeated here Last 24 Hours Test 10/08/17 16:06 White Blood Count 9.35 K/uL Red Blood Count 2.85 M/uL Hemoglobin 9.0 g/dL Hematocrit 27.0 % Mean Corpuscular Volume 94.7 fL Mean Corpuscular Hemoglobin 31.6 pg Mean Corpuscular Hemoglobin Concent 33.3 g/dl Platelet Count 288 K/uL Mean Platelet Volume 8.6 fL Neutrophils (%) (Auto) 71.9 % Lymphocytes (%) (Auto) 18.7 % Monocytes (%) (Auto) 5.8 % Eosinophils (%) (Auto) 2.1 % Basophils (%) (Auto) 0.2 % Neutrophils # (Auto) 6.72 K/uL Lymphocytes # (Auto) 1.75 K/uL Monocytes # (Auto) 0.54 K/uL Eosinophils # (Auto) 0.20 K/uL Basophils # (Auto) 0.02 K/uL RDW Standard Deviation 49.9 fL RDW Coefficient of Variation 14.6 % Immature Granulocyte % (Auto) 1.3 % Immature Granulocyte # (Auto) 0.12 K/uL Sodium Level 138 mmol/L Potassium Level 3.8 mmol/L Chloride Level 105 mmol/L Carbon Dioxide Level 26 mmol/L Anion Gap 7.0 mmol/L Blood Urea Nitrogen 7 mg/dl Creatinine 0.66 mg/dl Est Creatinine Clear Calc Drug Dose 143.9 ml/min Estimated GFR () 139.3 Estimated GFR (Non- 120.2 BUN/Creatinine Ratio 10.4 Random Glucose 86 mg/dl Calcium Level 8.5 mg/dl Total Bilirubin 0.2 mg/dl Direct Bilirubin < 0.1 mg/dl Aspartate Amino Transf (AST/SGOT) 66 U/L Alanine Aminotransferase (ALT/SGPT) 90 U/L Alkaline Phosphatase 142 U/L Total Protein 6.3 gm/dl Albumin 2.3 gm/dl Lipase 91 U/L Date Time Temp Pulse Resp B/P (MAP) Pulse Ox O2 Delivery O2 Flow Rate FiO2 10/08/17 18:55 77 16 138/83 99 Room Air 10/08/17 17:39 104 22 141/90 98 Room Air 10/08/17 17:34 75 22 145/94 99 Room Air 76 137/96 100 141/90 10/08/17 16:46 73 20 100 Room Air 10/08/17 16:35 68 10/08/17 14:47 36.8 79 20 135/91 100 Room Air She states she is feeling better now, no more dizziness No CP/ SOB/fever/ chills/ ALONSO/ N&V/ epigastric or RUQ pain She is on monitor and pulse is 72. Past Medical/Surgical History Medical Problems: (1) Anemia, Status: Acute (2) Dizziness Status: Acute (3) Toe sprain Status: Acute Family History FH: lung disease Kidney disease Kidney stones Social History Smoking Status: Former Smoker Drug Use: none Housing Status: lives with family Occupation Status: employed Allergies Coded Allergies: Latex (Verified Allergy, Intermediate, Swelling of extremities and face., 10/08/17) PT was instructed by PCP to treat latex as an allergy. Current Inpatient Medications Current Inpatient Medications Medications (Trade) Dose Ordered Sig/Balwinder Route Start Time Stop Time Status Last Admin Dose Admin Sodium Chloride 1,000 ml @ 200 mls/hr Q5H ONCE IV 10/08/17 16:01 10/08/17 21:00 Physical Exam Date Time Temp Pulse Resp B/P (MAP) Pulse Ox O2 Delivery O2 Flow Rate FiO2 10/08/17 18:55 77 16 138/83 99 Room Air 10/08/17 17:39 104 22 141/90 98 Room Air 10/08/17 17:34 75 22 145/94 99 Room Air 76 137/96 100 141/90 10/08/17 16:46 73 20 100 Room Air 10/08/17 16:35 68 10/08/17 14:47 36.8 79 20 135/91 100 Room Air General Appearance: WD/WN, no apparent distress, + pertinent finding (pale) Head: normocephalic Respiratory/Chest: chest non-tender, lungs clear Cardiovascular: regular rate, rhythm Abdomen/GI: soft, + pertinent finding (fundus firm, at the U, lochia minimal) Extremities/Musculoskelatal: no pedal edema, non-tender, + swelling Skin: + pallor Laboratory Results Last 24 Hours Test 10/08/17 16:06 White Blood Count 9.35 K/uL Red Blood Count 2.85 M/uL Hemoglobin 9.0 g/dL Hematocrit 27.0 % Mean Corpuscular Volume 94.7 fL Mean Corpuscular Hemoglobin 31.6 pg Mean Corpuscular Hemoglobin Concent 33.3 g/dl Platelet Count 288 K/uL Mean Platelet Volume 8.6 fL Neutrophils (%) (Auto) 71.9 % Lymphocytes (%) (Auto) 18.7 % Monocytes (%) (Auto) 5.8 % Eosinophils (%) (Auto) 2.1 % Basophils (%) (Auto) 0.2 % Neutrophils # (Auto) 6.72 K/uL Lymphocytes # (Auto) 1.75 K/uL Monocytes # (Auto) 0.54 K/uL Eosinophils # (Auto) 0.20 K/uL Basophils # (Auto) 0.02 K/uL RDW Standard Deviation 49.9 fL RDW Coefficient of Variation 14.6 % Immature Granulocyte % (Auto) 1.3 % Immature Granulocyte # (Auto) 0.12 K/uL Sodium Level 138 mmol/L Potassium Level 3.8 mmol/L Chloride Level 105 mmol/L Carbon Dioxide Level 26 mmol/L Anion Gap 7.0 mmol/L Blood Urea Nitrogen 7 mg/dl Creatinine 0.66 mg/dl Est Creatinine Clear Calc Drug Dose 143.9 ml/min Estimated GFR () 139.3 Estimated GFR (Non- 120.2 BUN/Creatinine Ratio 10.4 Random Glucose 86 mg/dl Calcium Level 8.5 mg/dl Total Bilirubin 0.2 mg/dl Direct Bilirubin < 0.1 mg/dl Aspartate Amino Transf (AST/SGOT) 66 U/L Alanine Aminotransferase (ALT/SGPT) 90 U/L Alkaline Phosphatase 142 U/L Total Protein 6.3 gm/dl Albumin 2.3 gm/dl Lipase 91 U/L Assessment & Plan 27 yo s/p on 10/04, 10 lb baby Discharged home with oral iron therapy Symptomatic on exertion, none at rest Hb 9, Hct: 27 Discussed the risks of blood transfusion as mild and severe allergic reaction, infection, fluid overload She declined blood transfusion and wanted to continue with oral iron therapy and take more time to rest at home and recover Discussed iron rich food, how to take iron and vitamin c rich food and bowel care with stool softeners She likes to be discharged tonight F/U in office in 2 days
== END 2017-10-08 20:16 | disposition home or self-care (01) ==
LOC: C.EDB 14:43 → C.EDC 20:16
DX: O90.81 Anemia of the puerperium (principal); R03.0 Elevated blood-pressure reading, without diagnosis of hypertension; R60.0 Localized edema; J45.909 Unspecified asthma, uncomplicated; F31.9 Bipolar disorder, unspecified; Z87.891 Personal history of nicotine dependence; Z91.040 Latex allergy status; Z84.1 Family history of disorders of kidney and ureter; Z82.49 Family history of ischemic heart disease and other diseases of the circulatory system; Z83.6 Family history of other diseases of the respiratory system

== ENCOUNTER 2018-12-19 10:41 | Inpatient (IN) ==
[2018-12-20] MEDS ORDERED: LACTATED RINGER'S 1,000 ML IV PRN (09:05)
[2018-12-20] MEDS ORDERED: OXYTOCIN 30 UNITS/500 ML BAG IV PRN (09:05)
[2018-12-20] MEDS ORDERED: miSOPROStol 50 MCG TAB PO ONE (09:05)
[2018-12-20 09:28] LABS: Hematocrit (blood only) 29.8 % (37-47); Hemoglobin 9.7 g/dL (12.0-16.0); Mean Corpuscular Volume 84.7 fL (80-100); Mean Platelet Volume 8.6 fL (7.4-10.4); Platelet Count 238 K/uL (130-400); RDW Coefficient of Variation 14.2 % (11.5-14.5); RDW Standard Deviation 43.8 fL (36.4-46.3); Red Blood Count 3.52 M/uL (4.2-5.4); White Blood Count 6.18 K/uL (4.8-10.8)
[2018-12-20 09:29] LABS: Mean Corpuscular Hgb Conc 32.6 g/dL (32-36)
--- NOTE | 2018-12-20 12:02 | Anesthesiology Consultation ---
Date of Service December 20, 2018 Assessment & Plan (1) Encounter for pre-operative examination: Chart Review Chart Review: Patient NOT seen in Pre Admission Testing and Acceptable Risk for Labor Epidural Consults Requested none Proposed Anesthesia Anesthesia Type: Labor Epidural Risk / Benefits Reviewed With: PT / POA / Parent / Guardian, Accepts Plan and Informed Consent Obtained History Height/Weight Height: 5 ft 6 in Weight: 97.069 kg Allergies Allergy/AdvReac Type Severity Reaction Status Date / Time latex Allergy Severe Swelling Verified 12/20/18 08:24 of extremities and face. prednisone AdvReac Intermediate Severe Verified 12/20/18 08:25 manic episodes Medications Home Medications Medication Instructions Recorded Confirmed Last Taken buspirone 7.5 mg PO TID 12/20/18 12/20/18 12/20/18 07:00 cholecalciferol (vitamin D3) 2,000 unit PO DAILY 12/20/18 12/20/18 12/19/18 [Vitamin D3] folic acid 1 mg PO DAILY 12/20/18 12/20/18 12/19/18 lamotrigine [Lamictal] 200 mg PO DAILY 12/20/18 12/20/18 12/19/18 21:00 lurasidone [Latuda] 60 mg PO DAILY 12/20/18 12/20/18 12/19/18 21:00 Past Medical History Medical History Asthma Uses Albuterol rescue inhaler - rarely. Exercise-Induced Asthma Bipolar 1 disorder See medication list. Sees Psychiatry - Dr. Rios Major depressive disorder Vitamin D deficiency Past Surgical History Surgical History Hx of tonsillectomy 2008 Social History Smoking Status: Former smoker tobacco type: cigarettes Smoking cigarettes per day: 1 pack Do You Dip or Chew Tobacco: No Smoking End Date: 04/2018 Hx Alcohol Use: No Hx Substance Use: No Physical Exam Vital Signs Last Vital Signs Temp 36.7 C 12/20/18 10:56 Pulse 86 12/20/18 10:56 Resp 18 12/20/18 10:56 BP 119/72 12/20/18 10:56 Testing Laboratory Results 12/20/18 09:15
[2018-12-20] MEDS ORDERED: ONDANSETRON INJ 2 MG/ML 2 ML VIAL ONE (23:09)
[2018-12-20] MEDS ORDERED: ONDANSETRON INJ 2 MG/ML 2 ML VIAL IV PRN (23:20)
[2018-12-21] MEDS ORDERED: ACETAMINOPHEN W/CODEINE #3 1 TAB PO PRN (01:42)
[2018-12-21] MEDS ORDERED: DIPHTHERIA/TETANUS/PERTUSSIS 0.5 ML SYR/VIAL IM ONE (01:42)
[2018-12-21] MEDS ORDERED: OXYCODONE/ACETAMINOPHEN 5mg/325mg TAB PO PRN (01:42)
[2018-12-21] MEDS ORDERED: BENZOCAINE 20% AER SPR 82.5 GM CAN EXT PRN (01:42)
[2018-12-21] MEDS ORDERED: ACETAMINOPHEN 325 MG TAB PO PRN (01:42)
[2018-12-21] MEDS ORDERED: SUPERCREAM 0.870% 15 GM JAR EXT PRN (01:42)
[2018-12-21] MEDS ORDERED: HYDROCORTISONE ACETATE 25 MG SUPP PR PRN (01:42)
[2018-12-21] MEDS ORDERED: OXYTOCIN 30 UNITS/500 ML BAG IV PRN (01:42)
[2018-12-21] MEDS ORDERED: BISACODYL 10 MG SUPP PR PRN (01:42)
--- NOTE | 2018-12-21 01:55 | Operative Report ---
DATE OF OPERATION: 12/21/2018 DELIVERY NOTE Mrs. Coronado is 2, para 2, blood type is A positive, group B strep negative. Had a history of macrosomia. She went overdue with her first . Infant was over 10 pounds. Presently was sent for induction at 39 weeks and 3 days due to the history of macrosomia. She was admitted, she was given 1 p.o. dose of Cytotec 50 mcg and with that she went into spontaneous labor. Her membranes were ruptured surgically at about 5 cm. She basically went to full dilatation and delivered a live infant via direct occiput anterior position over an intact perineum. Infant was suctioned through the mouth and the nose. Body was delivered without difficulty. Cord was clamped and cut by the father. Cord blood was taken. With IV Pitocin running, the placenta was removed intact. Inspection of the perineum revealed a first-degree laceration of the perineum. This was repaired with a running Vicryl. The vaginal mucosa was approximated out and to beyond the hymenal ring with heavy Vicryl. Then a deep suture was used to approximate the bulbocavernosus muscle, separate deep suture was used to approximate the perineal body, and a running subcuticular suture was used to approximate the perineal skin edges. Estimated blood loss was 200 mL. The patient tolerated the procedure well. I attest to the content of the Intraoperative Record and any orders documented therein. Any exception s are noted below.
[2018-12-21] MEDS ORDERED: CALCIUM CARBONATE 500 MG CHEWABLE TAB PO PRN (02:36)
[2018-12-21] MEDS ORDERED: IBUPROFEN 600 MG TAB PO ONE (03:53)
[2018-12-21] MEDS: DOCUSATE SODIUM 100 MG CAP PO SCH ×2 (08:54→19:53)
[2018-12-21] MEDS: PRENATAL VITAMIN 1 TAB PO SCH (08:54)
[2018-12-21] MEDS: IBUPROFEN 600 MG TAB PO PRN ×2 (12:40→19:54)
[2018-12-21] MEDS ORDERED: LURASIDONE HCL 40 MG TAB PO SCH (16:30)
[2018-12-21] MEDS ORDERED: Nursing to Pharmacy Communication ONE (16:53)
[2018-12-21] MEDS: lamoTRIgine 100 MG TAB PO SCH (21:53)
[2018-12-21] MEDS: LURASIDONE HCL 40 MG TAB PO SCH (21:54)
[2018-12-21] MEDS: ONDANSETRON 4 MG TAB PO PRN (22:26)
[2018-12-22] MEDS: IBUPROFEN 600 MG TAB PO PRN ×4 (06:38→22:16)
[2018-12-22 06:54] LABS: Hematocrit (blood only) 25.9 % (37-47); Hemoglobin 8.2 g/dL (12.0-16.0); Mean Corpuscular Hgb Conc 31.7 g/dL (32-36); Mean Corpuscular Volume 85.8 fL (80-100); Mean Platelet Volume 8.6 fL (7.4-10.4); Platelet Count 200 K/uL (130-400); RDW Coefficient of Variation 14.6 % (11.5-14.5); RDW Standard Deviation 45.3 fL (36.4-46.3); Red Blood Count 3.02 M/uL (4.2-5.4); White Blood Count 8.25 K/uL (4.8-10.8)
[2018-12-22] MEDS: PRENATAL VITAMIN 1 TAB PO SCH (09:47)
[2018-12-22] MEDS: DOCUSATE SODIUM 100 MG CAP PO SCH ×2 (09:47→22:17)
--- NOTE | 2018-12-22 10:36 | Obstetrical Progress Note ---
Date of Service December 22, 2018 Results & Data Vital Signs (Past 12 Hours) Vital Signs Temp Pulse Resp BP Pulse Ox 12/22/18 07:40 36.7 C 69 18 109/68 97 12/22/18 00:15 36.6 C 70 18 109/74
--- NOTE | 2018-12-22 15:41 | Progress Note ---
Date of Service December 22, 2018 Subjective Pt informed nurse she has varicose vein on left leg Pt seen and examined S. reports varicose veins on legs prior to . worse in . has Fam. Hx of varicose veins Leg pain a little more significant today. no pain or redness in the popliteal region. no SOB or chest pain O; VSS Rt Leg: superficial veins palpable. No pain or redness in the popliteal region Plan expectant management for now Results & Data Vital Signs (Past 12 Hours) Vital Signs Temp Pulse Resp BP Pulse Ox 12/22/18 07:40 36.7 C 69 18 109/68 97
[2018-12-22] MEDS ORDERED: BISACODYL 5 MG TABEC PO SCH (20:00)
[2018-12-22] MEDS: ONDANSETRON 4 MG TAB PO PRN (22:19)
[2018-12-22] MEDS: lamoTRIgine 100 MG TAB PO SCH (22:20)
[2018-12-22] MEDS: LURASIDONE HCL 40 MG TAB PO SCH (22:21)
[2018-12-23] MEDS: IBUPROFEN 600 MG TAB PO PRN ×3 (03:12→14:45)
[2018-12-23 07:18] LABS: Hematocrit (blood only) 27.2 % (37-47); Hemoglobin 8.5 g/dL (12.0-16.0)
--- NOTE | 2018-12-23 08:01 | Obstetrical Progress Note ---
Date of Service December 23, 2018 Subjective Patient is seen and examined. She feels well, no complaints. Likes to be discharged Ambulating without dizziness Voiding without difficulty Tolerating regular diet with out N&V Bleeding is minimal No fever/ chills/ CP/ SOB/ N&V/ Leg pain Bottle feeding without problems Vital Signs Temp Pulse Resp BP Pulse Ox 12/22/18 23:00 36.4 C L 71 16 120/78 98 12/22/18 20:20 36.7 C 72 16 122/67 97 12/22/18 15:39 36.5 C 75 18 119/69 98 12/23/18 Range/Units 06:51 Hgb 8.5 L (12.0-16.0) g/dL Hct 27.2 L (37-47) % PE: General: Alert, orientedx3, NAD Abd: soft, NT, fundus firm, below Umbilicus Perineum intact, Lochia rubra minimal Ext; NT, no edema AP: 28 yo s/p , ppd# 2 VSS Afebrile doing well Continue routine care All questions were answered D/C home , f/u in office Results & Data Vital Signs (Past 12 Hours) Vital Signs Temp Pulse Resp BP Pulse Ox 12/22/18 23:00 36.4 C L 71 16 120/78 98 12/22/18 20:20 36.7 C 72 16 122/67 97
[2018-12-23] MEDS: PRENATAL VITAMIN 1 TAB PO SCH (09:15)
[2018-12-23] MEDS: DOCUSATE SODIUM 100 MG CAP PO SCH (09:15)
== END 2018-12-23 17:30 | disposition home or self-care (01) | DRG 807 ==
LOC: 4S1 12-20 07:36 → 4S2 12-21 04:28

== ENCOUNTER 2022-11-21 07:24 | Inpatient (IN) ==
[2022-11-21] MEDS ORDERED: LIDOCAINE 1% LOCAL 20 ML VIAL INFIL PRN (07:31)
[2022-11-21] MEDS ORDERED: OXYTOCIN 30 UNITS/500 ML BAG IV PRN ×3 (07:31→18:12)
[2022-11-21 08:06] LABS: Hematocrit (blood only) 31.2 % (37.0-47.0); Hemoglobin 10.2 g/dl (12.0-16.0); Mean Corpuscular Hemoglobin 28.1 pg (25.0-34.0); Mean Corpuscular Hgb Conc 32.7 g/dL (32.0-36.0); Mean Platelet Volume 9.4 fL (9.4-12.4); Platelet Count 227 K/uL (130-400); RDW Coefficient of Variation 13.6 % (11.5-14.5); RDW Standard Deviation 41.6 fL (36.4-46.3); Red Blood Count 3.63 M/uL (4.20-5.40); White Blood Count 9.85 K/ul (4.8-10.8)
--- NOTE | 2022-11-21 09:01 | History & Physical Report ---
Date of Service November 21, 2022 Assessment & Plan (1) Encounter for induction of labor: Plan: Pitocin, eventually AROM, patient anticipating NCB as she has done before. Admission and Anticipated Discharge Date Admission Date: November 21, 2022 History of Present Illness Primary Care Provider: Hien Restrepo MD 32yo for IOL due to h/o macrosomia with current fetus having EFW 88% and AC >98%. Preg c/b Bipolar 1 stable on medication regimen including latuda, lamictal, olanzapine, prn buspar, and patient using nicotine replacement. Also on heparin SQ due to h/o superficial thrombus after last delivery, needs 6wk ppx lovenox. GBS neg. Allergies Allergy/AdvReac Type Severity Reaction Status Date / Time latex Allergy Severe Swelling Verified 11/20/22 11:56 of extremities and face. prednisone AdvReac Intermediate Severe Verified 11/20/22 11:56 manic episodes Home Medications Medication Instructions Recorded Confirmed Type lurasidone 60 mg tablet (Latuda) 60 mg PO HS 12/20/18 11/20/22 History buspirone 15 mg tablet 15 mg PO TID 05/24/20 11/21/22 History olanzapine 2.5 mg tablet 2.5 mg PO HS PRN MOOD STABILIZATION 05/24/20 11/20/22 History lamotrigine 200 mg tablet 400 mg PO HS 03/22/21 11/20/22 History lurasidone 20 mg tablet (Latuda) 10 mg PO HS 03/22/21 11/20/22 History prenat.vits,chao,brh-zkdu-slzoe 1 tab PO DAILY 10/05/21 11/20/22 History calcium carbonate 200 mg calcium 400 mg PO BID PRN Acid Reflux 11/10/21 11/20/22 History (500 mg) chewable tablet (Tums) nicotine (polacrilex) PO 04/18/22 11/20/22 History ondansetron HCl 4 mg tablet 4 mg PO Q6H PRN nausea and 07/13/22 11/20/22 Rx vomiting #20 tabs ondansetron 4 mg disintegrating 4 mg PO Q6H PRN nausea and 11/05/22 11/20/22 Rx tablet vomiting #30 tabs heparin, porcine (PF) subcut 11/07/22 11/20/22 History Patient History Medical History Asthma Bipolar 1 disorder Sees Psychiatry - Dr. Rios H/O gastroesophageal reflux (GERD) History of chicken pox Major depressive disorder Pelvic pain Varicose vein of leg superficial blood clot post Vitamin D deficiency Surgical History Hx of tonsillectomy (2008) Family History Father Depression Brother Depression Denies family history of Ovarian cancer Prostate cancer Myocardial infarction Breast cancer Colorectal cancer Social History Smoking Status: Former smoker Tobacco Type: Cigarettes Age Started Using Tobacco: 17; Age Quit Using Tobacco: 27; packs per day: 1; Cigarettes Per Day: 1 pack; Second Hand Exposure: No; Do You Dip or Chew Tobacco: No; Tobacco Cessation Education Requested by Patient: No Hx Alcohol Use: No Hx Substance Use: Yes Prescribed Medications: Opiates and Painkillers Last Used Substance Other:: 12 years ago Preferred Language: Ukrainian Communication Ability: Effective Visual Impairment: No Limitations Hearing Ability: Normal Forest Resource Specialist Required: No Beliefs That Will Affect Care: None marital status: marital status details: Dale JR Ivonne (32) [phone] Current Living Situation: Spouse Current Living Situation Comment: lives with spouse, 2 sons, dogs, chickens, cats-spouse changing litter current occupational status: unemployed 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 Other Information That Helps Us Care for You: No Feels Safe at Home: Yes Safety Concerns: Feels Safe At This Time Childhood Exposure to Second-Hand Smoke: Yes Diet: regular caffeine: Yes Dental Care, Regularly: Yes Physical Activity Frequency: 3-4 Times per Week Seatbelt Use: always Sunscreen Use: Yes Assistive Devices: Glasses Review of Systems All systems reviewed & are unremarkable except as noted in HPI & below Physical Exam Constitutional: WD/WN, vitals as above Eyes: PERRL, conjunctivae normal, anicteric sclerae ENMT: external ear and nose normal, oropharynx normal Neck: supple Respiratory: normal respiratory effort and able to speak in complete sentences; no respiratory distress Cardiovascular: Rate/Rhythm: regular rate and regular rhythm Extremities: + pedal edema Gastrointestinal (Abdomen): Gravid / AGA, nontender Musculoskeletal: no cyanosis or clubbing, extremities motor strength 5/5 Skin: no rashes, warm and dry Neurologic: patellar DTR's 2+ bilat, sensation intact Psychiatric: A+Ox3, euthymic affect Genitourinary: Speculum/Bimanual Exam: no vaginal lesions, no vaginal bleeding and uterus nontender OB Exam Abdomen: + vertex and + estimated weight (9lb) Manual OB Exam: + cervical dilation 3 cm, + cervical effacement 80% and + station -2 OB Exam Monitor Tracing: + external FHT monitor used, + external uterine monitor used and + category I Lymphatic: no cervical or axillary lymphadenopathy Results & Data Vital Signs (Past 12 Hours) Vital Signs Temp Pulse Resp BP 11/21/22 08:02 98.6 F 112 H 18 125/83 11/21/22 07:41 112 H 125/83 Coding Level of Care Code None Diagnoses Encounter for induction of labor Z34.90
[2022-11-21] MEDS: LACTATED RINGER'S 1,000 ML IV PRN ×2 (09:11→16:27)
--- NOTE | 2022-11-21 14:37 | Labor Progress Brief Note ---
Date of Service November 21, 2022 Subjective Patient previously had headache but this improved with eating jello and soda. Disappointed that she's not feeling really any discomfort yet, and requests AROM now. Assessment & Plan (1) Encounter for induction of labor: Plan: BP normal, ALONSO resolved, was perhaps due to limited food intake / low BG. AROM at pt request. Continue curr mgmt. Admission and Anticipated Discharge Date Admission Date: November 21, 2022 Physical Exam Genitourinary: Cervix remains unchanged. AROM for copious mec-stained fluid, thin and dilute FHT Cat 1 Yonah Q5-6 Results & Data Vital Signs (Past 12 Hours) Vital Signs Temp Pulse Resp BP 11/21/22 08:02 98.6 F 112 H 18 125/83 11/21/22 14:19 86 11/21/22 14:19 98.1 F 20 128/93 11/21/22 13:36 92 H 11/21/22 13:36 127/87 11/21/22 13:18 98 H 11/21/22 13:18 132/86 11/21/22 12:18 91 H 11/21/22 12:18 142/85 H 11/21/22 11:18 81 11/21/22 11:18 97.9 F 16 121/85 11/21/22 10:21 77 11/21/22 10:21 114/66 11/21/22 09:14 86 11/21/22 09:14 129/81 11/21/22 07:41 112 H 125/83 Coding Level of Care Code None Diagnoses Encounter for induction of labor Z34.90
[2022-11-21] MEDS ORDERED: ONDANSETRON INJ 2 MG/ML 2 ML VIAL IV PRN (15:18)
[2022-11-21] MEDS ORDERED: IBUPROFEN 600 MG TAB PO ONE (17:35)
[2022-11-21] MEDS ORDERED: oxyCODONE/ACETAMINOPHEN 5mg/325mg TAB PO ONE (17:36)
[2022-11-21] MEDS ORDERED: BENZOCAINE 20% AER SPR 82.5 GM CAN EXT ONE (17:48)
--- NOTE | 2022-11-21 17:51 | Delivery Summary ---
Vaginal Delivery Summary Date of Service November 21, 2022 Vaginal Delivery Summary DIAGNOSES: 1. Adam intrauterine at 39w1d gestation. 2. Induction of Labor due to prior LGA 3. Group B Streptococcus Neg. PROCEDURE: Spontaneous vaginal delivery without laceration. SURGEON: Arleen Simpson MD. BIOINFORMATICS PROGRAMMER: None. ESTIMATED BLOOD LOSS: 400 mL. COMPLICATIONS: None. PLACENTA: Spontaneous and intact with a 3-vessel cord. DISPOSITION: Stable to labor and delivery. DESCRIPTION: The patient pushed well and brought the head to in DOA position. The 's head was allowed to deliver with contraction force and no further active pushing, with the perineum protected during this time. There was no nuchal cord. The shoulders and body delivered without any difficulty, and the infant was placed on the maternal abdomen. It was vigorous and moving all extremities, and making respiratory efforts. The cord was doubly clamped by the MD and then cut by the FOB. The placenta delivered after cord avulsion, and required partial manual extraction; it was found to have a marginal vs velamentous insertion, and took a little more than 20 min to separate even with intermittent uterine massage. It is felt to be intact and has a 3VC. The cervix, vagina and perineum were examined and were found to be without defect requiring repair. The fundus was firm and lochia minimal immediately after delivery. [facility] Vaginal Delivery Charge Vaginal Delivery Codes: 36739 global code for the antepartum, delivery, and post-
[2022-11-21] MEDS: oxyCODONE/ACETAMINOPHEN 5mg/325mg TAB PO PRN (18:06)
[2022-11-21] MEDS ORDERED: bisacodyL 10 MG SUPP PR PRN (18:12)
[2022-11-21] MEDS ORDERED: HYDROCORTISONE ACETATE 25 MG SUPP PR PRN (18:12)
[2022-11-21] MEDS ORDERED: OLANZAPINE 2.5 MG TAB PO PRN (18:12)
[2022-11-21] MEDS ORDERED: BENZOCAINE 20% AER SPR 82.5 GM CAN EXT PRN (18:12)
[2022-11-21] MEDS ORDERED: DIPHTHERIA/TETANUS/PERTUSSIS Vaccine (Tdap, Age 7+yrs) 0.5mL SYR/VL IM ONE (18:12)
[2022-11-21] MEDS ORDERED: ACETAMINOPHEN 325 MG TAB PO PRN (18:12)
[2022-11-21] MEDS ORDERED: SODIUM CHLORIDE 0.9% 250 ML IV PRN ×2 (18:25→19:29)
[2022-11-21] MEDS ORDERED: TRANEXAMIC ACID / 0.7% NACL 1,000 MG/100 ML BAG IV STA (18:30)
[2022-11-21] MEDS ORDERED: METHYLERGONOVINE MALEATE 0.2 MG/ML AMP IM STA (18:30)
[2022-11-21] MEDS ORDERED: ceFAZolin 1000MG 1,000 MG/7.5 ML SYR IV STA (18:31)
[2022-11-21] MEDS ORDERED: METHYLERGONOVINE MALEATE 0.2 MG/ML AMP ONE (18:33)
--- NOTE | 2022-11-21 18:45 | Obstetrical Progress Note ---
Date of Service November 21, 2022 Assessment & Plan (1) hemorrhage: Patient was receiving second IV, stat labs including fibrinogen and coags 1 g Ancef, Butler placed under sterile conditions [address] Simpsno to take over Patient currently stable Appreciate the call Subjective Called by nursing staff that patient was having low pelvic pressure, her OB provider was on her way, and was asked to assist nursing staff in the room. Upon presentation patient was in Trendelenburg, with noted approximately 300 mL of blood loss at that time. She was hypotensive and pale. Physical Exam Genitourinary Exam noted large amount of blood products in the vagina and the cervix was still completely dilated, was able to evacuate 2 large parts of placental tissue. Patient tolerated procedure approximate blood loss from this procedure was 1500 mL Results & Data Vital Signs (Past 12 Hours) Vital Signs Temp Pulse Resp BP Pulse Ox 11/21/22 08:02 37.0 C 112 H 18 125/83 11/21/22 18:42 84 11/21/22 18:42 123/77 11/21/22 18:40 100 11/21/22 18:40 72 11/21/22 18:40 72 11/21/22 18:40 119/71 11/21/22 18:38 72 11/21/22 18:38 115/73 11/21/22 18:36 84 11/21/22 18:36 117/71 11/21/22 18:35 100 11/21/22 18:35 86 11/21/22 18:34 69 11/21/22 18:34 120/79 11/21/22 18:32 85 11/21/22 18:32 114/75 11/21/22 18:30 100 11/21/22 18:30 94 H 11/21/22 18:31 96 H 11/21/22 18:30 113/72 11/21/22 18:31 106/59 L 11/21/22 18:28 88 11/21/22 18:28 116/64 11/21/22 18:26 110 H 11/21/22 18:26 103/64 11/21/22 18:25 83 L 11/21/22 18:25 127 H 11/21/22 18:25 136/67 11/21/22 18:20 100 11/21/22 18:20 109 H 11/21/22 18:15 100 11/21/22 18:15 117 H 11/21/22 18:00 96 H 11/21/22 18:00 112/75 11/21/22 17:45 107 H 11/21/22 17:45 119/70 11/21/22 17:18 98 H 11/21/22 17:18 138/93 11/21/22 16:17 81 11/21/22 16:17 140/80 11/21/22 16:17 22 11/21/22 16:17 36.4 C L 22 11/21/22 16:17 81 11/21/22 16:17 140/80 11/21/22 15:23 193 H 11/21/22 15:23 126/87 11/21/22 14:19 86 11/21/22 14:19 36.7 C 20 128/93 11/21/22 13:36 92 H 11/21/22 13:36 127/87 11/21/22 13:18 98 H 11/21/22 13:18 132/86 11/21/22 12:18 91 H 11/21/22 12:18 142/85 H 11/21/22 11:18 81 11/21/22 11:18 36.6 C 16 121/85 11/21/22 10:21 77 11/21/22 10:21 114/66 11/21/22 09:14 86 11/21/22 09:14 129/81 11/21/22 07:41 112 H 125/83
--- NOTE | 2022-11-21 18:46 | Communication Note ---
Date of Service: November 21, 2022 I was called to notify me that patient's blood pressure was "low" but fundus firm and lochia was minimal. I had left the building after delivering this deven ent, so while I began to drive back in, I asked for additional information. BP was reported as 70/30, pulse 107. I asked that nursing notify the other OB in house, Dr. Blanco, and ask her to attend the patient while I returned to the hospital. Meanwhile I requested (by phone) the placement of two large-bore IVs, a bolus of crystalloid, Type and Cross for 2u pRBC, and a stat H&H. At the time of my return several minutes later, the patient was awake and alert, with Dr. Blanco at bedside along with several members of the nursing staff. Dr. Blanco reported that she had completed a bimanual exam, removed clot from the vagina and the uterus, and reaching all the way to the fundus she was able to retrieve two pieces of retained placenta. Once those were removed the uterus contracted well. She had ordered TXA and Methergine in addition to the pitocin already being bolused, and the patient had received motrin and percocet for pain with the manual exam. Ancef 1gm was ordered as well after extraction of the placental pieces. As the patient is now normotensive (119/71) with pulse 72, pain is acceptable after completion of the exam, will observe and await labs before further measures such as transfusion.
[2022-11-21 19:02] LABS: Hemoglobin 8.7 g/dl (12.0-16.0)
[2022-11-21 19:05] LABS: Fibrinogen 305 mg/dl (184-400); INR 0.9 (0.9-1.1); Partial Thromboplastin Ratio 0.8; Partial Thromboplastin Time 23.6 Seconds (21.0-31.0); Prothrombin Time 10.2 Seconds (9.0-12.0)
[2022-11-21] MEDS: busPIRone 15 MG TAB PO SCH (21:39)
[2022-11-21] MEDS: lamoTRIgine 100 MG TAB PO SCH (21:39)
[2022-11-21] MEDS: LURASIDONE HCL 40 MG TAB PO SCH (21:39)
[2022-11-21] MEDS: DOCUSATE SODIUM 100 MG CAP PO SCH (21:39)
[2022-11-22] MEDS: IBUPROFEN 600 MG TAB PO PRN ×6 (00:05→23:48)
[2022-11-22] MEDS: oxyCODONE/ACETAMINOPHEN 5mg/325mg TAB PO PRN ×5 (00:06→18:45)
--- NOTE | 2022-11-22 06:02 | Obstetrical Progress Note ---
Date of Service November 22, 2022 Assessment & Plan (1) hemorrhage: (2) Encounter for induction of labor: (3) Encounter for supervision of normal in multigravida: Plan Gregoria is a 32 y/o female who is PPD #1 following vaginal delivery at 39w1d. -Meeting all milestones -Vital signs reviewed and WNL, repeat hemoglobin this a.m. 6.9. -Will transfuse 2 units given PPH and hemoglobin today -Started Lovenox 40 daily, will need for 6 weeks total -A+/GBS negative/Rubella immune -Follow up in 6 weeks for appointment -Continue routine care Admission and Anticipated Discharge Date Admission Date: November 21, 2022 Supervising Physician Co-Signing Physician Notes Resident Physician Supervision Note: I interviewed and examined the patient. Discussed with Dr. Flores and agree with findings and plan as documented in the note. Any exceptions or clarificati ons are listed here: PPH with manual extraction of two pieces placental tissue, after which bleeding resolved nicely. Hgb 6.9 this morning consistent with calculated blood losses, transfusion of 2u discussed with patient who consents to receive them. F/U blood counts tomorrow morning prior to d/c home. Clinically tolerating her anemia well. Documented By: Arleen Simpson MD, FACOG Subjective Gregoria is a 32 y/o female who is PPD #1 following vaginal delivery at 39w1d. Her delivery was complicated by hemorrhage (EBL 1540) and retained placenta. She reports feeling well overall this morning. Pain is a 4/10, managed on analgesics. Butler catheter just removed. Tolerating meals overnight but no ambulation yet. Has some persistent lochia with some improvement this morning. Currently formula feeding. Review of Systems Constitutional: no fever, no chills and no sweats Respiratory: no cough, no dyspnea and no wheezing Cardiovascular: no chest pain, no palpitations and no calf pain Genitourinary: no dysuria Neurologic: no headache(s) Physical Exam Constitutional: WD/WN, vitals as above no acute distress Respiratory: no respiratory distress Auscultation: lungs clear to auscultation bilaterally; no rales, no rhonchi and no wheezes Cardiovascular: RRR, no murmur, no edema Extremities: no calf tenderness and no edema Negative Darien's sign bilaterally. Gastrointestinal (Abdomen): Inspection/Auscultation: normal bowel sounds Genitourinary: Uterine fundus firm, palpable below the umbilicus. Results & Data Vital Signs (Past 12 Hours) Vital Signs Temp Pulse Pulse Resp BP BP Pulse Ox 11/22/22 04:25 36.7 C 79 18 116/77 11/22/22 00:10 36.5 C 102 H 18 114/69 11/21/22 21:25 36.5 C 104 H 18 116/83 98 11/21/22 18:20 16 70/46 L 11/21/22 18:15 14 50/34 L 11/21/22 18:00 96 H 20 112/75 11/21/22 18:45 37.0 C 18 100 11/21/22 19:57 36.8 C 93 H 11/21/22 19:57 116/71 11/21/22 19:55 99 11/21/22 19:55 103 H 11/21/22 19:53 93 H 11/21/22 19:53 118/71 11/21/22 19:50 100 11/21/22 19:50 96 H 11/21/22 19:42 18 11/21/22 19:42 18 11/21/22 19:45 99 11/21/22 19:45 102 H 11/21/22 19:42 93 H 11/21/22 19:42 126/87 11/21/22 19:40 100 11/21/22 19:40 86 11/21/22 19:37 102 H 11/21/22 19:37 131/83 11/21/22 19:35 100 11/21/22 19:35 101 H 11/21/22 19:32 98 H 11/21/22 19:32 122/66 11/21/22 19:30 100 11/21/22 19:30 103 H 11/21/22 19:27 97 H 11/21/22 19:27 123/68 11/21/22 19:17 18 11/21/22 19:17 37.0 C 18 11/21/22 19:25 100 11/21/22 19:25 89 11/21/22 19:22 90 11/21/22 19:22 124/59 L 11/21/22 19:20 100 11/21/22 19:20 90 05/10/23 19:17 82 11/21/22 19:17 121/62 11/21/22 19:15 100 11/21/22 19:15 91 H 11/21/22 19:12 83 11/21/22 19:12 122/68 11/21/22 19:10 100 11/21/22 19:10 79 11/21/22 19:07 93 H 11/21/22 19:07 124/72 11/21/22 19:05 100 11/21/22 19:05 82 11/21/22 19:02 76 11/21/22 19:02 120/76 11/21/22 19:00 100 11/21/22 19:00 77 11/21/22 18:57 80 11/21/22 18:57 128/77 11/21/22 18:55 100 11/21/22 18:55 77 11/21/22 18:50 100 11/21/22 18:50 80 11/21/22 18:50 132/75 11/21/22 18:48 75 11/21/22 18:48 124/74 11/21/22 18:45 100 11/21/22 18:45 75 11/21/22 18:46 80 11/21/22 18:46 121/77 11/21/22 18:42 84 11/21/22 18:42 123/77 11/21/22 18:40 100 11/21/22 18:40 72 11/21/22 18:40 72 11/21/22 18:40 119/71 11/21/22 18:38 72 11/21/22 18:38 115/73 11/21/22 18:36 84 11/21/22 18:36 117/71 11/21/22 18:35 100 11/21/22 18:35 86 11/21/22 18:34 69 11/21/22 18:34 120/79 11/21/22 18:32 85 11/21/22 18:32 114/75 11/21/22 18:30 100 11/21/22 18:30 94 H 11/21/22 18:31 96 H 11/21/22 18:30 113/72 11/21/22 18:31 106/59 L 11/21/22 18:28 88 11/21/22 18:28 116/64 11/21/22 18:26 110 H 11/21/22 18:26 103/64 11/21/22 18:25 83 L 11/21/22 18:25 127 H 11/21/22 18:25 136/67 11/21/22 18:20 100 11/21/22 18:20 109 H 11/21/22 18:15 100 11/21/22 18:15 117 H 11/21/22 18:00 96 H 11/21/22 18:00 112/75 O2 Del Method 11/22/22 04:25 11/22/22 00:10 11/21/22 21:25 Room Air 11/21/22 18:20 11/21/22 18:15 11/21/22 18:00 11/21/22 18:45 11/21/22 19:57 11/21/22 19:57 11/21/22 19:55 11/21/22 19:55 11/21/22 19:53 11/21/22 19:53 11/21/22 19:50 11/21/22 19:50 11/21/22 19:42 11/21/22 19:42 11/21/22 19:45 11/21/22 19:45 11/21/22 19:42 11/21/22 19:42 11/21/22 19:40 11/21/22 19:40 11/21/22 19:37 11/21/22 19:37 11/21/22 19:35 11/21/22 19:35 11/21/22 19:32 11/21/22 19:32 11/21/22 19:30 11/21/22 19:30 11/21/22 19:27 11/21/22 19:27 11/21/22 19:17 11/21/22 19:17 11/21/22 19:25 11/21/22 19:25 11/21/22 19:22 11/21/22 19:22 11/21/22 19:20 11/21/22 19:20 11/21/22 19:17 11/21/22 19:17 11/21/22 19:15 11/21/22 19:15 11/21/22 19:12 11/21/22 19:12 11/21/22 19:10 11/21/22 19:10 11/21/22 19:07 11/21/22 19:07 11/21/22 19:05 11/21/22 19:05 11/21/22 19:02 11/21/22 19:02 11/21/22 19:00 11/21/22 19:00 11/21/22 18:57 11/21/22 18:57 11/21/22 18:55 11/21/22 18:55 11/21/22 18:50 11/21/22 18:50 11/21/22 18:50 11/21/22 18:48 11/21/22 18:48 11/21/22 18:45 11/21/22 18:45 11/21/22 18:46 11/21/22 18:46 11/21/22 18:42 11/21/22 18:42 11/21/22 18:40 11/21/22 18:40 11/21/22 18:40 11/21/22 18:40 11/21/22 18:38 11/21/22 18:38 11/21/22 18:36 11/21/22 18:36 11/21/22 18:35 11/21/22 18:35 11/21/22 18:34 11/21/22 18:34 11/21/22 18:32 11/21/22 18:32 11/21/22 18:30 11/21/22 18:30 11/21/22 18:31 11/21/22 18:30 11/21/22 18:31 11/21/22 18:28 11/21/22 18:28 11/21/22 18:26 11/21/22 18:26 11/21/22 18:25 11/21/22 18:25 11/21/22 18:25 11/21/22 18:20 11/21/22 18:20 11/21/22 18:15 11/21/22 18:15 11/21/22 18:00 11/21/22 18:00 Resident Activity Tracking Resident Involvement: Resident Care Provided Care Provided: OB Delivery
[2022-11-22 06:49] LABS: Hematocrit (blood only) 21.6 % (37.0-47.0); Hemoglobin 6.9 g/dl (12.0-16.0); Mean Corpuscular Hemoglobin 28.4 pg (25.0-34.0); Mean Corpuscular Hgb Conc 31.9 g/dL (32.0-36.0); Mean Corpuscular Volume 88.9 fL (80.0-100.0); Mean Platelet Volume 9.4 fL (9.4-12.4); Platelet Count 179 K/uL (130-400); RDW Coefficient of Variation 13.9 % (11.5-14.5); Red Blood Count 2.43 M/uL (4.20-5.40); White Blood Count 15.31 K/ul (4.8-10.8)
[2022-11-22] MEDS ORDERED: SODIUM CHLORIDE 0.9% 250 ML IV PRN (06:54)
[2022-11-22] MEDS: DOCUSATE SODIUM 100 MG CAP PO SCH ×2 (07:39→19:47)
[2022-11-22] MEDS: PRENATAL VITAMIN 1 TAB PO SCH (07:39)
[2022-11-22] MEDS: busPIRone 15 MG TAB PO SCH ×3 (07:50→19:47)
[2022-11-22] MEDS: ENOXAPARIN INJ 40 MG/0.4 ML SYR SQ SCH (07:51)
[2022-11-22] MEDS: NICOTINE POLACRILEX 2 MG GUM MT PRN ×8 (08:47→23:49)
[2022-11-22] MEDS: LURASIDONE HCL 40 MG TAB PO SCH (19:48)
[2022-11-22] MEDS: lamoTRIgine 100 MG TAB PO SCH (19:48)
[2022-11-22] MEDS ORDERED: bisacodyL 5 MG TABEC PO SCH (20:00)
[2022-11-22 21:16] LABS: Hematocrit (blood only) 23.9 % (37.0-47.0); Hemoglobin 7.7 g/dl (12.0-16.0)
[2022-11-23] MEDS: NICOTINE POLACRILEX 2 MG GUM MT PRN ×4 (04:21→12:02)
[2022-11-23] MEDS: IBUPROFEN 600 MG TAB PO PRN (05:23)
--- NOTE | 2022-11-23 06:19 | Obstetrical Progress Note ---
Date of Service November 23, 2022 Assessment & Plan (1) hemorrhage: (2) Encounter for induction of labor: (3) Encounter for supervision of normal in multigravida: Plan Gregoria is a 32 y/o female who is PPD #2 following vaginal delivery at 39w1d. -Meeting all milestones -Vital signs reviewed and WNL, repeat hemoglobin this a.m. pending -Started Lovenox 40 daily, will need for 6 weeks total (patient notes she has 2+ weeks of prescription at home with refills) -A+/GBS negative/Rubella immune -Follow up in 6 weeks for appointment -Continue routine care -Patient hoping to d/c later today Admission and Anticipated Discharge Date Admission Date: November 21, 2022 Supervising Physician Co-Signing Physician Notes Resident Physician Supervision Note: I interviewed and examined the patient. Discussed with Dr. Flores and agree with findings and plan as documented in the note. Any exceptions or clarifications are listed here: [None] Documented By: Rosa العراقي MD, FACOG Subjective Gregoria is a 32 y/o female who is PPD #2 following vaginal delivery at 39w1d. Her delivery was complicated by hemorrhage (EBL 1540) and retained placenta. She reports feeling well overall this morning. Pain is managed on analgesics. Notes that yesterday she had dizziness/felt ill while standing to shower- but symptoms improved after sitting. No lightheadedness/dizziness while resting in bed. Voiding without issue. Tolerating meals overnight. Has some persistent lochia with some improvement this morning. Currently formula feeding. Review of Systems Constitutional: no fever, no chills and no sweats Respiratory: no cough, no dyspnea and no wheezing Cardiovascular: no chest pain, no palpitations and no calf pain Genitourinary: no dysuria Neurologic: no headache(s) Physical Exam Constitutional: WD/WN, vitals as above no acute distress Respiratory: no respiratory distress Auscultation: lungs clear to auscultation bilaterally; no rales, no rhonchi and no wheezes Cardiovascular: RRR, no murmur, no edema Extremities: no calf tenderness and no edema Gastrointestinal (Abdomen): Inspection/Auscultation: normal bowel sounds Skin: no rashes, warm and dry Genitourinary: Uterine fundus firm, palpable below umbilicus Results & Data Vital Signs (Past 12 Hours) Vital Signs Temp Pulse Resp BP Pulse Ox O2 Del Method 11/22/22 23:13 36.9 C 88 16 125/78 98 Room Air 11/22/22 19:25 36.5 C 81 18 127/86 99 Room Air 11/22/22 19:00 36.7 C 78 22 139/87 100 Room Air Resident Activity Tracking Resident Involvement: Resident Care Provided Care Provided: OB Delivery
[2022-11-23] MEDS: PRENATAL VITAMIN 1 TAB PO SCH (08:07)
[2022-11-23] MEDS: DOCUSATE SODIUM 100 MG CAP PO SCH (08:07)
[2022-11-23] MEDS: ENOXAPARIN INJ 40 MG/0.4 ML SYR SQ SCH (08:08)
[2022-11-23] MEDS: busPIRone 15 MG TAB PO SCH (08:10)
[2022-11-23 09:06] LABS: Hemoglobin 7.1 g/dl (12.0-16.0)
== END 2022-11-23 13:10 | disposition home or self-care (01) | DRG 806 ==
LOC: 4S1 07:24 → 4E2 20:27